=== PATIENT | female | born 1955 | race Caucasian/White ===

== ENCOUNTER → 2017-04-17 | Outpatient (CLI) | payer OTHER | LOC: BMCIMAGING 14:54 | PROVIDERS: ATTEND Nurse Practitioner Adult Health | DX: Z12.31 Encounter for screening mammogram for malignant neoplasm of breast (principal); Z80.3 Family history of malignant neoplasm of breast | CPT/HCPCS: G0202 ==

== ENCOUNTER → 2017-04-26 | Outpatient (CLI) | payer OTHER | LOC: BMCIMAGING 09:46 | DX: Z12.39 Encounter for other screening for malignant neoplasm of breast (principal); R92.8 Other abnormal and inconclusive findings on diagnostic imaging of breast | CPT/HCPCS: G0206 ==